=== PATIENT | female | born 1990 | race Caucasian/White ===

== ENCOUNTER 2022-10-21 12:42 | Emergency (ER) | payer MEDICAID ==
[~2022-10-21] VITALS: Ht 170.2 cm; Wt 61.0 kg
[2022-10-21 15:00] VITALS: BP 130/75
[2022-10-21] MEDS ORDERED: LORazepam 1 MG TABLET PO ONE (15:00)
== END 2022-10-21 15:14 | disposition home or self-care (01) ==
LOC: EDBD 13:17 → EMS 13:17
DX: F41.9 Anxiety disorder, unspecified (principal); F32.A Depression, unspecified; F17.210 Nicotine dependence, cigarettes, uncomplicated; F15.90 Other stimulant use, unspecified, uncomplicated
CPT/HCPCS: 99283

== ENCOUNTER 2022-11-01 08:24 | Emergency (ER) | payer MEDICAID ==
[~2022-11-01] VITALS: Ht 162.6 cm; Wt 56.8 kg
[2022-11-01 08:26] VITALS: BP 138/85
== END 2022-11-01 10:12 | disposition home or self-care (01) ==
LOC: EMS 08:26
DX: L02.11 Cutaneous abscess of neck (principal); F41.9 Anxiety disorder, unspecified; F32.A Depression, unspecified; F17.210 Nicotine dependence, cigarettes, uncomplicated; F15.90 Other stimulant use, unspecified, uncomplicated; Z88.5 Allergy status to narcotic agent; Z48.00 Encounter for change or removal of nonsurgical wound dressing; Z88.8 Allergy status to other drugs, medicaments and biological substances
CPT/HCPCS: 99281; Z7502

== ENCOUNTER 2022-11-01 11:25 | Emergency (ER) | payer MEDICAID ==
[~2022-11-01] VITALS: Ht 160 cm; Wt 52.3 kg
[2022-11-01 11:37] VITALS: BP 136/64
[2022-11-01] MEDS ORDERED: LORazepam 1 MG TABLET PO ONE (11:45)
== END 2022-11-01 12:10 | disposition home or self-care (01) ==
LOC: EMS 11:27
DX: F41.9 Anxiety disorder, unspecified (principal); F32.A Depression, unspecified; F17.210 Nicotine dependence, cigarettes, uncomplicated; F15.90 Other stimulant use, unspecified, uncomplicated; L02.11 Cutaneous abscess of neck; Z88.5 Allergy status to narcotic agent; Z88.8 Allergy status to other drugs, medicaments and biological substances
CPT/HCPCS: 99283